=== PATIENT | female | born 1985 | race Two or more races ===

== ENCOUNTER 2022-09-25 10:34 | Inpatient (IN) | payer OTHER ==
[~2022-09-25] VITALS: Ht 175.3 cm; Wt 1.8 kg
[2022-09-25] MEDS ORDERED: PRENATAL TABLE1 EAC1 PO (13:48)
== END 2022-09-29 10:09 | disposition home or self-care (01) | DRG 788 ==
LOC: LDR 10:34 → OB/GYN 09-27 11:20
PROVIDERS: ADMIT Obstetrics & Gynecology Gynecology; ATTEND Obstetrics & Gynecology Gynecology
PROC: 4A1HXCZ Monitoring of Products of Conception, Cardiac Rate, External Approach (ICD-10-PCS; 2022-09-25)
PROC: 10D00Z1 Extraction of Products of Conception, Low, Open Approach (ICD-10-PCS; principal; 2022-09-27 10:45)
DX: O60.14X0 Preterm labor third trimester with preterm delivery third trimester, not applicable or unspecified (principal); O34.211 Maternal care for low transverse scar from previous cesarean delivery; Z3A.36 36 weeks gestation of pregnancy; Z37.0 Single live birth; Z20.822 Contact with and (suspected) exposure to COVID-19